=== PATIENT | female | born 1965 | race Caucasian/White ===

== ENCOUNTER 2017-06-01 18:21 | Emergency (ER) | payer BC ==
[2017-06-01 18:42] VITALS: BP 129/76
[2017-06-01] MEDS ORDERED: Aspirin Low Dose CHEW TAB* 81 MG PO ONE (18:57)
--- NOTE | 2017-06-01 19:03 | ED ---
HPI Cardiac - HPI Summary HPI Summary: 51 yr old female with complaint of chest pain, onset 530 pm [address] walking into [employer]. Pain was intense 7/10, and took her breath away. Associated with dizziness. She states she has 2/10 pain now. It radiated into her left shoulder blade earlier, and not now. She states she has a family history of CAD in young people. - History of Current Complaint Chief Complaint: UCChestPain Stated Complaint: CHEST PAIN Time Seen by Provider: 06/01/17 18:43 Hx Last Menstrual Period: MIRENA - Allergy/Home Medications Allergies/Adverse Reactions: Allergies Allergy/AdvReac Type Severity Reaction Status Date / Time Bee Venom Allergy Swelling Verified 06/01/17 18:44 Sulfa Antibiotics Allergy Anaphylatic Verified 06/01/17 18:44 Shock Home Medications: Home Medications Bupropion XL* [Wellbutrin XL *] 150 mg PO DAILY 06/01/17 [History Confirmed ] Docusate CAP* [Colace Cap*] 100 mg PO BEDTIME PRN 06/01/17 [History Confirmed ] Loratadine [Allergy Relief] 10 mg PO BEDTIME 06/01/17 [History Confirmed ] Multiple Vitamins W/ Minerals [Multivitamin Adults] 1 tab PO BEDTIME 06/01/17 [ History Confirmed 06/01/17] [place]-3 Fatty Acids [Fish Oil 500 mg] 1 cap PO BEDTIME 06/01/17 [History Confirmed 06/01/17] PMH/Surg Hx/FS Hx/Imm Hx - Cancer History Hx Chemotherapy: No Hx Radiation Therapy: No - Surgical History Surgery Procedure, Year, and Place: jaye reduction 2009. TONSILECTOMY Infectious Disease History: No Infectious Disease History: Denies: Traveled Outside the [place] in Last 30 Days - Family History Known Family History: Positive: Cardiac Disease - Social History Occupation: Employed Full-time Lives: With Family Alcohol Use: Occasionally Substance Use Type: Reports: None Smoking Status (MU): Never Smoked Tobacco Review of Systems Constitutional: Negative Positive: Chest Pain. Negative: Palpitations Positive: Shortness Of Breath All Other Systems Reviewed And Are Negative: Yes Physical Exam Triage Information Reviewed: Yes Vital Signs On Initial Exam: Initial Vitals Temp Pulse Resp BP Pulse Ox 97 F 76 16 129/76 100 06/01/17 18:34 06/01/17 18:34 06/01/17 18:34 06/01/17 18:34 06/01/17 18:34 Vital Signs Reviewed: Yes Appearance: Positive: Well-Appearing, No Pain Distress Skin: Positive: Warm, Skin Color Reflects Adequate Perfusion Head/Face: Positive: Normal Head/Face Inspection Eyes: Positive: EOMI ENT: Positive: Normal ENT inspection Respiratory/Lung Sounds: Positive: Clear to Auscultation, Breath Sounds Present , Other - no chest wall tenderness Cardiovascular: Positive: RRR. Negative: Murmur Abdomen Description: Positive: Nontender Musculoskeletal: Positive: Strength/ROM Intact. Negative: Edema Left, Edema Right Neurological: Positive: Sensory/Motor Intact, Alert, Oriented to Person Place, Time, CN Intact II-III Psychiatric: Positive: Normal - Hannah Coma Scale Best Eye Response: 4 - Spontaneous Best Motor Response: 6 - Obeys Commands Best Verbal Response: 5 - Oriented Diagnostics - Vital Signs Vital Signs Temp Pulse Resp BP Pulse Ox 06/01/17 18:34 97 F 76 16 129/76 100 - Laboratory Lab Statement: Any lab studies that have been ordered have been reviewed, and results considered in the medical decision making process. - EKG 06/01/2017 Cardiac Rate: NL EKG Rhythm: Sinus Rhythm ST Segment: Normal Ectopy: None EKG Comparison: No Significant Change Disposition - Course Course Of Treatment: 51 yr old female with chest pain, she will sign out AMA with risk of , disability, heart attack, blood clot. - Diagnoses Provider Diagnoses: Chest pain Discharge - Discharge Plan Condition: Good Disposition: AGAINST MEDICAL ADVICE Referrals: Nikole SALDAÑA,Shonda Dang [Primary Care Provider] -
== END 2017-06-01 19:10 | disposition left against medical advice (07) ==
LOC: UCCORT 18:21
DX: R07.89 Other chest pain (principal); R06.02 Shortness of breath; R42 Dizziness and giddiness; Z88.2 Allergy status to sulfonamides
CPT/HCPCS: 93005; 99212; A9270-GY; G0463